=== PATIENT | male | born 1965 | race Asian ===

== ENCOUNTER 2022-08-04 14:52 | Emergency (ER) | payer MEDICAID ==
[~2022-08-04] VITALS: Ht 162.6 cm; Wt 79.0 kg
[~2022-08-04 14:52] MED LIST: AMLO2.5T2 PO; INSU100C10 SQ; LANTUS SQ; LISI40TA13 PO; METF1000 PO; SITA25TA3 PO
[2022-08-04] MEDS ORDERED: ciprofloxacin 0.3% 2.5ml ophthalmic solution RIGHTEYE ONE (15:25)
[2022-08-04] MEDS ORDERED: proparacaine 0.5% ophthalmic drops 15ml RIGHTEYE ONE (15:25)
[2022-08-04] MEDS ORDERED: CIPR2.5D21 RIGHTEYE (16:47)
[2022-08-04 17:05] VITALS: BP 126/79
== END 2022-08-04 17:08 | disposition home or self-care (01) ==
LOC: ER 14:53
DX: S05.01XA Injury of conjunctiva and corneal abrasion without foreign body, right eye, initial encounter (principal); X58.XXXA Exposure to other specified factors, initial encounter; Y93.89 Activity, other specified; Y92.89 Other specified places as the place of occurrence of the external cause; Y99.8 Other external cause status
CPT/HCPCS: 99283

== ENCOUNTER 2024-11-15 22:20 | Emergency (ER) | payer MEDICAID ==
[~2024-11-15] VITALS: Ht 162.6 cm; Wt 82.2 kg
[~2024-11-15 22:20] MED LIST changes: +ALBU6.7H14 INH; -LISI40TA13 PO; +LISI40TA20 PO
[2024-11-15 22:24] VITALS: BP 146/90; PULSE 87; RESP 16; O2SAT 96
[2024-11-15] MEDS ORDERED: CIPR7.5D7 RIGHT EAR (23:06)
--- NOTE | 2024-11-15 23:06 | Physician Documentation ---
History of Present Illness ~ Chief Complaint: Ear Pain Stated Complaint: EAR INFECTION Time Seen by MD: 22:51 HPI Patient is seen today with complaints of pain in his right ear that started couple of days ago. Patient states he does use Q-tips in his right ear. He complains of muffled hearing in his right ear. He has no other concern or complaint at this time and denies any fevers or chills. Patient states he did start using ear drops in his right ear today. Medication Reconciliation Allergies: Coded Allergies: No Known Allergies (Unverified , 08/04/22) Scheduled Amlodipine* (Norvasc*), 5 MG PO DAILY, (Reported) Ciprofloxacin HCl/Dexameth (Ciproflox-Dexameth Otic Susp), 3 DROP RIGHT EAR BID Insulin Glargine,Hum.rec.anlog* (Lantus*), 20 UNITS SQ BID, (Reported) Insulin Lispro (Humalog), 6 UNITS SQ WB, (Reported) Insulin Lispro (Humalog), 8 UNITS SQ WS, (Reported) Lisinopril* (Lisinopril*), 1 TAB PO DAILY, (Reported) Metformin Hcl* (Glucophage*), 1 TAB PO BID, (Reported) Sitagliptin Phosphate* (Januvia*), 1 TAB PO DAILY, (Reported) Scheduled PRN Albuterol Sulfate (Proventil Hfa), 2 PUFFS INH Q6H PRN for cough or wheeze Past Medical History Past Medical History: No Pertinent History Past Surgical History: noncontributory Alcohol Use: None Drug Use: none Lives with: Spouse Lives In: Home Occupation: employed Review of Systems Constitutional: Denies: chills, fever, weakness Eyes: Denies: pain, blurred vision ENT: Denies: ear pain, nose pain, throat pain, mouth pain Respiratory: Denies: cough, shortness of breath Cardiovascular: Denies: chest pain, palpitations Gastrointestinal: Denies: abdominal pain, nausea, vomiting Genitourinary: Denies: burning, dysuria Male Genitalia: Denies: penile discharge, testicular pain Neurological: Denies: headache, dizziness Musculoskeletal: Denies: pain, swelling Integumentary: Denies: rash, lesions Allergic/Immunologic: Denies: hives, itching Hematologic/Lymphatic: Denies: no symptoms reported Psychiatric: Denies: depression, anxiety Physical Exam Vital Signs: Temperature: 98.5, Source: Oral, Heart Rate: 87, Respiratory Rate: 16, BP: 146/90, Pulse Oximetry: 96, Weight: 82.200 Oxygen Flow Rate: 0 Physical Exam General: Awake and Alert, no acute distress. HEENT: Patient does have cerumen impaction on the right side. With swelling of the canal. I do not appreciate any purulent drainage from the right canal. Patient does have tenderness to palpation of the tragus of the right side. Patient has no swelling of the left otic canal and no excess cerumen and TM does appear dull on the left side. TM is not visualized in the right side. Conjunctiva pink, Sclera clear, Mucus Membranes moist. Neck: Supple without masses and tenderness. Resp: Unlabored. Lungs clear to auscultation bilaterally. Heart: Regular Rate and rhythm, normal S1 and S2 without murmur, rub or gallop. Extremities: No cyanosis,clubbing or edema. Skin: Warm and Dry. Progress Results/Orders Results/Orders Vital Signs 11/15/24 22:24 Temp 98.5 Pulse 87 Resp 16 B/P (MAP) 146/90 Pulse Ox 96 O2 Flow Rate 0 Medical Decision Making Findings Patient is seen today with complaints of pain in his right ear that started couple of days ago. Patient states he does use Q-tips in his right ear. He complains of muffled hearing in his right ear. He has no other concern or complaint at this time and denies any fevers or chills. Patient states he did start using ear drops in his right ear today. Patient did have otic lavage performed today with minimal expression of cerumen. Patient was given prescription for Debrox and Prescription of antibacterial otic drops sent to patient's pharmacy. Patient will continue Tylenol and ibuprofen as needed for symptomatic relief. Patient will follow up with primary care in 2-5 days for repeat otic lavage. Return to ED with any worsening, concerning or changing symptoms. Departure Disposition: 01 HOME / SELF CARE / HOMELESS Impression: Primary Impression: Impacted cerumen of right ear Additional Impression: Otitis externa Qualified Codes: H60.501 - Unspecified acute noninfective otitis externa, right ear Condition: Improved Additional Instructions: Patient did have otic lavage performed today with minimal expression of cerumen. Patient was given prescription for Debrox and Prescription of antibacterial otic drops sent to patient's pharmacy. Patient will continue Tylenol and ibuprofen as needed for symptomatic relief. Patient will follow up with primary care in 2-5 days for repeat otic lavage. Return to ED with any worsening, concerning or changing symptoms. Referrals: NO PRIMARY CARE PROVIDER (PCP) Prescriptions Carbamide Peroxide (Debrox) 6.5 % Drops 5 DROP RIGHT EAR Q12H, #15 ML 0 Refills Prov: KIMMIE GIRON 11/16/24 Ciprofloxacin HCl/Dexameth (Ciproflox-Dexameth Otic Susp) 0.3 %-0.1 % Drops.susp 3 DROP RIGHT EAR BID for 7 Days, #10 ML Prov: KIMMIE GIRON 11/15/24 Signature Scribe Signature: No scribe Attestation: No scribe KIMMIE GIRON Nov 15, 2024 23:05
[2024-11-16] MEDS ORDERED: CARB15DR91 RIGHT EAR (00:12)
[2024-11-16 00:29] VITALS: TEMP 98.5
== END 2024-11-16 00:30 | disposition home or self-care (01) ==
LOC: ER 22:21
DX: H61.21 Impacted cerumen, right ear (principal); H60.91 Unspecified otitis externa, right ear
CPT/HCPCS: 99283